=== PATIENT | female | born 1955 | race Caucasian/White ===

== ENCOUNTER → 2022-10-23 10:11 | Outpatient (BNVA) | payer MEDICARE, SELFPAY | PROVIDERS: PCP Family Medicine; Visit Provider Internal Medicine | DX: E03.9 Hypothyroidism, unspecified (principal); M25.539 Pain in unspecified wrist; R79.89 Other specified abnormal findings of blood chemistry; R76.8 Other specified abnormal immunological findings in serum; Z79.899 Other long term (current) drug therapy | CPT/HCPCS: 36415; 80053; 81001; 82306; 82550; 82728; 83516; 83540; 83735; 84100; 84443; 84550; 85025; 86140; 86160; 86162; 86235; 86255; 86376; 86704; 86803; 87077; 87086; 87186; 87340; 99204 ==

== ENCOUNTER → 2022-11-18 11:43 | Outpatient (BNVA) | payer MEDICARE, SELFPAY | PROVIDERS: PCP Family Medicine; Visit Provider Internal Medicine | DX: R76.8 Other specified abnormal immunological findings in serum (principal); M19.041 Primary osteoarthritis, right hand; M25.539 Pain in unspecified wrist | CPT/HCPCS: 73120; 99214 ==

== ENCOUNTER → 2023-01-27 15:32 | Outpatient (BNVA) | payer MEDICARE, SELFPAY | PROVIDERS: PCP Family Medicine; Visit Provider Internal Medicine | DX: R76.8 Other specified abnormal immunological findings in serum (principal); M19.90 Unspecified osteoarthritis, unspecified site | CPT/HCPCS: 99214 ==